=== PATIENT | female | born 1990 ===

== ENCOUNTER 2024-02-02 11:30 | Outpatient (CLI) | payer OTHER, SELFPAY ==
[2024-02-02 22:17] LABS: Hemoglobin A1C 5.4 % (<5.7)
[2024-02-08 02:19] LABS: DHEA-Sulfate 181 mcg/dL (19-237); FSH 7.1 mIU/mL
[2024-02-10 10:33] LABS: Testosterone Total 36 ng/dL (2-45)
== END 2024-02-02 11:31 | disposition home or self-care (01) ==
LOC: ANHLAB 11:33
PROVIDERS: Visit Provider Student in an Organized Health Care Education/Training Program
DX: N93.9 Abnormal uterine and vaginal bleeding, unspecified (principal)
CPT/HCPCS: 36415; 82627; 82670; 83001; 83036; 84403; 84443

== ENCOUNTER 2024-02-08 09:05 | Outpatient (CLI) | payer OTHER, SELFPAY ==
--- NOTE | ~2024-02-08 | US_ITS ---
Pelvic ultrasound. Clinical History: Abnormal uterine bleeding Technique: Realtime transabdominal scanning of the pelvis was performed. Patient refused transvaginal imaging. Color flow Doppler and Doppler spectral analysis were performed. Findings: The uterus is anteverted. The endometrial stripe has a thickness of 16 mm. No focal mass i s identified. The right ovary measures 2.6 x 2.4 x 2.2 cm. No significant right ovarian or adnexal mass is seen. The left ovary measures 2.4 x 2.8 x 2.0 cm. No significant left ovarian or adnexal mass is seen. Vascular flow present in both ovaries on Doppler spectral analysis. There is no evidence of free fluid in the cul de sac. Impression: No significant abnormality seen. Reviewed, dictated and finalized at [facility]. Impression: No significant abnormality seen.
== END 2024-02-08 09:06 ==
LOC: GOSHIMG 09:06
PROVIDERS: PCP Family Medicine; Visit Provider Student in an Organized Health Care Education/Training Program
DX: N93.9 Abnormal uterine and vaginal bleeding, unspecified (principal)
CPT/HCPCS: 76856